=== PATIENT | female | born 1960 ===

== ENCOUNTER 2025-05-20 14:46 | Outpatient (AMB) | payer OTHER, SELFPAY | END 2025-05-21 14:06 | disposition home or self-care (01) | LOC: HO.HMGAL 14:46 | PROVIDERS: PCP Internal Medicine; Visit Provider Registered Nurse Emergency | DX: J30.89 Other allergic rhinitis (principal) | CPT/HCPCS: 95117; 95165 ==

== ENCOUNTER 2025-06-03 11:30 | Outpatient (AMB) | payer OTHER, SELFPAY | END 2025-06-03 11:35 | disposition home or self-care (01) | LOC: HO.HMGAL 11:30 | PROVIDERS: PCP Internal Medicine; Visit Provider Registered Nurse Emergency | DX: J30.89 Other allergic rhinitis (principal) | CPT/HCPCS: 95117; 95165 ==

== ENCOUNTER 2025-06-10 11:31 | Outpatient (AMB) | payer OTHER, SELFPAY | END 2025-06-10 11:32 | disposition home or self-care (01) | LOC: HO.HMGAL 11:31 | PROVIDERS: PCP Internal Medicine; Visit Provider Registered Nurse Emergency | DX: J30.89 Other allergic rhinitis (principal) | CPT/HCPCS: 95117; 95165 ==

== ENCOUNTER 2025-07-01 12:07 | Outpatient (AMB) | payer OTHER, SELFPAY | END 2025-07-01 12:23 | disposition home or self-care (01) | LOC: HO.HMGAL 12:07 | PROVIDERS: PCP Internal Medicine; Visit Provider Registered Nurse Emergency | DX: J30.89 Other allergic rhinitis (principal) | CPT/HCPCS: 95117; 95165 ==

== ENCOUNTER 2025-07-10 13:39 | Outpatient (AMB) | payer OTHER, SELFPAY | END 2025-07-10 13:39 | disposition home or self-care (01) | LOC: HO.HMGAL 13:39 | PROVIDERS: PCP Internal Medicine; Visit Provider Registered Nurse Emergency | DX: J30.89 Other allergic rhinitis (principal) | CPT/HCPCS: 95117; 95165 ==

== ENCOUNTER 2025-07-17 13:34 | Outpatient (AMB) | payer OTHER, SELFPAY | END 2025-07-17 13:36 | disposition home or self-care (01) | LOC: HO.HMGAL 13:34 | PROVIDERS: PCP Internal Medicine; Visit Provider Registered Nurse Emergency | DX: J30.89 Other allergic rhinitis (principal) | CPT/HCPCS: 95117; 95165 ==

== ENCOUNTER 2025-07-24 12:39 | Outpatient (AMB) | payer OTHER, SELFPAY | END 2025-07-24 12:39 | disposition home or self-care (01) | LOC: HO.HMGAL 12:39 | PROVIDERS: PCP Internal Medicine; Visit Provider Registered Nurse Emergency | DX: J30.89 Other allergic rhinitis (principal) | CPT/HCPCS: 95117; 95165 ==

== ENCOUNTER 2025-07-31 13:04 | Outpatient (AMB) | payer OTHER, SELFPAY | END 2025-07-31 13:05 | disposition home or self-care (01) | LOC: HO.HMGAL 13:04 | PROVIDERS: PCP Internal Medicine; Visit Provider Registered Nurse Emergency | DX: J30.89 Other allergic rhinitis (principal) | CPT/HCPCS: 95117; 95165 ==

== ENCOUNTER 2025-08-12 11:44 | Outpatient (AMB) | payer OTHER, SELFPAY | END 2025-08-12 11:44 | disposition home or self-care (01) | LOC: HO.HMGAL 11:44 | PROVIDERS: PCP Internal Medicine; Visit Provider Registered Nurse Emergency | DX: J30.89 Other allergic rhinitis (principal) | CPT/HCPCS: 95117; 95165 ==

== ENCOUNTER 2025-08-19 11:31 | Outpatient (AMB) | payer OTHER, SELFPAY | END 2025-08-19 11:31 | disposition home or self-care (01) | LOC: HO.HMGAL 11:31 | PROVIDERS: PCP Internal Medicine; Visit Provider Registered Nurse Emergency | DX: J30.89 Other allergic rhinitis (principal) | CPT/HCPCS: 95117; 95165 ==

== ENCOUNTER 2025-08-26 12:45 | Outpatient (AMB) | payer OTHER, SELFPAY | END 2025-08-26 12:46 | disposition home or self-care (01) | LOC: HO.HMGAL 12:45 | PROVIDERS: PCP Internal Medicine; Visit Provider Registered Nurse Emergency | DX: J30.89 Other allergic rhinitis (principal) | CPT/HCPCS: 95117; 95165 ==

== ENCOUNTER 2025-09-02 09:01 | Outpatient (AMB) | payer OTHER, SELFPAY | END 2025-09-02 09:01 | disposition home or self-care (01) | LOC: HO.HMGAL 09:01 | PROVIDERS: PCP Internal Medicine; Visit Provider Registered Nurse Emergency | DX: J30.89 Other allergic rhinitis (principal) | CPT/HCPCS: 95117; 95165 ==

== ENCOUNTER 2025-09-11 13:58 | Outpatient (AMB) | payer OTHER, SELFPAY | END 2025-09-11 13:58 | disposition home or self-care (01) | LOC: HO.HMGAL 13:58 | PROVIDERS: PCP Internal Medicine; Visit Provider Registered Nurse Emergency | DX: J30.89 Other allergic rhinitis (principal) | CPT/HCPCS: 95117; 95165 ==